=== PATIENT | male | born 1955 | race Caucasian/White ===

== ENCOUNTER 2019-08-24 00:17 | Inpatient (IN) | payer MEDICAID ==
[~2019-08-24] VITALS: Ht 182.8 cm; Wt 85.7 kg
[2019-08-25] MEDS ORDERED: ABILIFY20 MG PO (00:21)
[2019-08-25] MEDS ORDERED: ASPIR LOW81 MG PO (00:21)
[2019-08-25] MEDS ORDERED: BENZTROPINE MESY1 MG PO (00:22)
[2019-08-25] MEDS ORDERED: CARBAMAZEPINE200 M2 PO (00:22)
[2019-08-25] MEDS ORDERED: VITAMIN D32000 UNI1 PO (00:23)
[2019-08-25] MEDS ORDERED: Depakote ER500 MG PO (00:24)
[2019-08-25] MEDS ORDERED: HYDROCHLOROTH12.5 M3 PO (00:24)
[2019-08-25] MEDS ORDERED: IBUPROFEN400 MG PO (00:25)
[2019-08-25] MEDS ORDERED: QUETIAPINE FUM400 M1 PO (00:26)
[2019-08-25] MEDS ORDERED: TAMSULOSIN HCL0.4 MG PO (00:27)
--- NOTE | 2019-08-25 02:00 | NUR ---
RUFUS OROURKE a 63 year old M admitted via stretcher from the ADMITTING as a emergency 72 hr. hold admission. Arrived on unit at 0200AM. ALLERGIES: LIBRIUM, LITHIUM, KLONOPIN. Vital signs are: [id number] 141/66. The client IS PINK SLIPPED AND UNABLE TO SIGN the following forms with stated understanding: Authorization For The Release of Medical Information, Clothing List, Consent to Voluntary Admission and Hospitalization, Consent and Release Forms/Receipt of Rights, Acknowledgement of Advance Directive Information, Behavioral Health Consent Form, and Informed Consent of Medications. Admitted under the services of Dr. ALLYSON MARCIALJUSTIN. A search was conducted and hazardous articles were removed. Client was oriented to the unit. FLIGHT OF IDEAS. NARCESSISTIC, GRANDIOUS. STATES HE WANTS TO BE A WOMEN NOT A MAN BECAUSE HIS MOM DRESSED HIM A GIRL. HE IS PREOCCUPIED WITH RELIOUS THOUGHTS. SPEACH PRESSURED AND RAPID. HYPERVERAL AND VERY DIFFICULT TO KEEP ON TRACT. ALL QUESTIONS REVERT BACK TO HIS PAST INCLUDING BEING IN THE [place] WAR AT THE AGE OF 13 AND THE [place] WAR. WISHED TO BE ADDRESSED NATHALIE LULU. PREOCCUPLIED WITH THE BLACK RACE AND SAYS HE IS TO A BLACK WOMEN AND HAS A BLACK DAUGHTER. READ PAPER ON MINI MENTAL THAN SAID HE CAN'T READ OR RIGHT. CLIENT IS CONTINENT AND INCONTINENT. TAMMI SCHMITT
--- NOTE | 2019-08-25 02:05 | NUR ---
DR NORIEGA NOTIFIED ON CELL [phone] ABOUT PATIENT ADMISSION TO UNIT. PATIENT PLACED UNDER DR ROSALES FOR MEDICAL MANAGEMENT
[2019-08-25 02:10] VITALS: BP 141/66
--- NOTE | 2019-08-25 02:15 | NUR ---
DR NORIEGA ON UNIT TO SEE PATIENT
--- NOTE | 2019-08-25 02:40 | NUR ---
STATES THE NURSING FACILITY WON'T LET HIM DRINK. HE LIKES COORS BEER BUT DOESN'T DRINK IT.
--- NOTE | 2019-08-25 04:30 | NUR ---
24 HR chart check completed.
--- NOTE | 2019-08-25 06:19 | NUR ---
PATIENT DID NOT SLEEP THROUGHOUT SHIFT. Q 15 MINUTE CHECKS MAINTAINED. 24 HR chart check completed.
[2019-08-25 06:57] LABS: BASO % 0.3 % (0.0-1.0); EOS # 0.1 10*3/uL (0.0-0.4); HEMATOCRIT 40.4 % (42.0-52.0); HEMOGLOBIN 13.2 g/dl (14.0-18.0); LYMPH # 1.5 10*3/uL (1.3-4.4); LYMPH % 15.5 % (27.0-41.0); MEAN CELL VOLUME 96.4 fl (80.0-94.0); MEAN CORPUSCULAR HGB 31.5 pg (27.0-31.0); MEAN CORPUSCULAR HGB CONC 32.7 g/dl (33.0-37.0); MEAN PLATELET VOLUME 9.5 fl (9.6-12.3); MONO # 0.7 10*3/uL (0.1-1.0); MONO % 7.4 % (3.0-9.0); NEUT # 7.1 10*3/uL (2.3-7.9); NEUT % 75.6 % (47.0-73.0); PLATELET COUNT AUTOMATED 255 10*3/uL (130-400); RED BLOOD COUNT 4.19 10*6/uL (4.50-5.90); RED CELL DISTRI WIDTH 13.3 % (0-14.5); WHITE BLOOD COUNT 9.4 10*3/uL (4.8-10.8)
[2019-08-25 07:26] VITALS: BP 140/67
[2019-08-25 07:26] LABS: ALBUMIN 3.7 gm/dl (3.1-4.5); ALKALINE PHOSPHATASE 70 U/L (45-117); BUN 10 mg/dl (7-24); CHLORIDE 104 mmol/L (98-107); CHOLESTEROL 174 mg/dL (<200); CREATININE 0.71 mg/dL (0.70-1.30); HDL CHOLESTEROL 60 mg/dl (40-60); SGOT/AST 15 IU/L (3-35); SGPT/ALT 21 U/L (12-78); SODIUM 138 mmol/L (136-145); TOTAL PROTEIN 7.6 gm/dL (6.4-8.2)
[2019-08-25 07:42] LABS: CARBAMAZEPINE (TEGRETOL) TOTAL 5.5 ug/ml (4-12); LDL CHOLESTEROL 88 mg/dL (9-159); TRIGLYCERIDES 130 mg/dl (<150); VALPROIC ACID (DEPAKENE) 13.1 ug/ml (50-100); VLDL CHOLESTEROL 26 mg/dL (6-40)
[2019-08-25 08:00] VITALS: BP 140/67
[2019-08-25 08:09] LABS: VITAMIN D, 25-HYDROXY 50.8 ng/mL (30-100)
--- NOTE | 2019-08-25 12:09 | NUR ---
AM GROUP/LEISURE PT IN ATTENDNACE AND PARTICIPATED. 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 PT WILL CONTINUE TO ATTEND AND PARTICIPATE IN FUTURE GROUP SESSIONS. THIS STAFF WILL COMPLETE ACTIVITY ASSESSMENT TODAY.
--- NOTE | 2019-08-25 13:10 | NUR ---
Patient was hyperverbal, grandiose, and voicing flight of ideas during assessment process. Pt stated that this is the second coming and he knows this because he was sent here by God. Pt stated that he and went to hell but pleaded for a second chance. God sent him back to earth as a transgender named Princess Olsen. Pt stated that he was buying this hospital because the diapers here are of excellent quality. Pt also stated that he was going to put [phone] trillion dollars into this [employer] bank account. Pt also stated that his mother had 5 sons and then stopped because of the pain of childbirth but she was given to transgender girls that grew up to have purple hair. Pt smiled throughout entire encounter.
--- NOTE | 2019-08-25 15:45 | NUR ---
P: CONFUSION, SHORT/CORRECTION MEMORY DEFICITS I: PROVIDED 1:1 FOR THERAPEUTIC COMMUNICATION. ENCOURAGED MEDICATION COMPLIANCE. MONITORED BEHAVIORS WITH Q15 MINUTE SAFETY CHECKS. ENCOURAGED PT TO ATTEND/PARTICIPATE IN GROUP. PROVIDED MEDICATION EDUCATION. REORIENTED PT NEEDED. REDIRECTED NEEDED. R: MEDICATION COMPLIANT WITHOUT DIFFICULTY. PT ATTENDED/PARTICIPATED IN GROUP. PT VERBALIZED UNDERSTANDING OF MEDICATIONS. DENIES SI/HI THOUGHTS. DENIES SADNESS AND DEPRESSION. ANBULATORY WITH A STEADY GAIT. FOI NOTED THIS AM. GRANDIOSE. P: PROVIDE 1:1 FOR THERAPEUTIC COMMUNICATION. ENCOURAGE MEDICATION COMPLIANCE. MONITOR BEHAVIORS WITH Q15 MINUTE SAFETY CHECKS. ENCOURAGE PT TO ATTEND/PARTICIPATE IN GROUP. PROVIDE MEDICATION EDUCATION. CONTINUE TO REORIENT/REDIRECT PT NEEDED. SEE [facility] FLOWSHEET FOR SPECIFIC MONITORING. DURING INTERACTIONS WITH THIS NURSE AND A STUDENT NURSE, PT STATED HE IN 1979 AND GOD BROUGHT HIM BACK AN YURIY. PT STATED HE IS TRANSGENDER. PT STATED HE WANTED TO HURT THE IRANS BECAUSE THEY BLEW HIS PARENTS OUT OF THE [place]. PT STATED HE DOES NOT SLEEP BECAUSE TRAINED ARMED FORCES WILL KILL HIM. WHEN PROVIDING MEDICATION EDUCATION PT STATED [employer] DOES NOT WORK WITH HIM. PT CONTINUED ON STATING "THEY USE TO GIVE ME 20 OF THEM".
--- NOTE | 2019-08-25 15:58 | NUR ---
PM GROUP/JAMIE!/DEMETRIUS PT ATTENDED AND PARTICIPATED IN ALL GROUP ACTIVITY. PT PLEASANT AND ON TASK WITH NO CONFUSION OR ANGER, BUT CONTINUES TO BE DELUSIONAL STATING "I'M GOING TO BE TAKING OWNERSHIP OF THIS HOSPITAL ON TUESDAY, THE FUND DEVELOPMENT MANAGER IS COMING TO MEET WITH ME". PT WILL CONTINUE TO ATTEND AND PARTICIPATE IN FUTURE GROUP SESSIONS TO BEST OF PT ABILITY.
[2019-08-25 20:00] VITALS: BP 139/74
--- NOTE | 2019-08-26 00:45 | NUR ---
URINE SPECIMEN COLLECTED. URINE OBTAINED VIA CLEAN CATCH. URINE CLOUDY YELLOW. PATIENT INCONTINENT OF BLADDER PRIOR TO COLLECTING SPECIMEN. PATIENT WITH NO COMPLAINTS OF DYSURIA. PO FLUIDS ENCOURAGED
--- NOTE | 2019-08-26 00:51 | NUR ---
P-EUPHORIC, RAPID SPEECH, HYPERVERBAL, GRANDIOSE, IDEAS OF REFERENCE I-REDIRECTION WITH 1:1 THERAPEUTIC INTERVENTIONS AND PRESENT REALITY. EDUCATE AND ENCOURAGE GROUP THERAPY WHILE AWAKE R-PATIENT ALERT WITH SHORT TERM AND HALFWAY MEMORY DEFICITS. PATIENT MEDICATION COMPLIANT AT HS. PATIENT PROVIDED NOURISHMENT AND FLUIDS AT HS. PATIENT WITH NO SUICIDAL OR HOMICIDAL IDEATIONS. PATIENT VERBALIZING "I OWN THIS HOSPITAL AND I AM GOING TO BUY ALL OF YOU NEW COMPUTERS AND A NEW COMPUTER SYSTEM. I AM PRINCESS LAWSON. I WROTE MY NAME ON MY BRACELET. IN CASE YOU DIDN'T KNOW, I AM TRANSGENDER P-CONTINUE TO ENCOURAGE MEDICATION COMPLIANCE, CONTINUE TO PRESENT REALITY, ENCOURAGE GROUP THERAPY WHILE AWAKE
[2019-08-26 01:25] LABS: BILIRUBIN NEGATIVE (NEGATIVE); CLARITY CLEAR (CLEAR); COLOR YELLOW (YELLOW); GLUCOSE NEGATIVE (NEGATIVE); KETONE NEGATIVE (NEGATIVE)
[2019-08-26 01:26] LABS: BLOOD NEGATIVE (NEGATIVE); LEUKO ESTERASE NEGATIVE (NEGATIVE); NITRITE NEGATIVE (NEGATIVE); PH 6.5 (5.0-9.0); UROBILINOGEN 0.2 E.U./dl (0.2-1.0); WBC 0-2 wbc/hpf (0-5)
--- NOTE | 2019-08-26 06:12 | NUR ---
PATIENT SLEPT 4 HOURS OF INTERRUPTED SLEEP THROUGHOUT SHIFT. Q 15 MINUTE CHECKS MAINTAINED. 24 HR chart check completed.
[2019-08-26 08:00] VITALS: BP 140/77
--- NOTE | 2019-08-26 12:04 | NUR ---
CALL PLACED TO GUARDIAN CHAPARRITA COULTER, MESSAGE LEFT FOR GUARDIAN TO RETURN CALL TO SIGN PT IN.
--- NOTE | 2019-08-26 17:35 | NUR ---
P: CONFUSION, SHORT/RETIREMENT MEMORY DEFICITS I: PROVIDED 1:1 FOR THERAPEUTIC COMMUNICATION. ENCOURAGED MEDICATION COMPLIANCE. MONITORED BEHAVIORS WITH Q15 MINUTE SAFETY CHECKS. ENCOURAGED PT TO ATTEND/PARTICIPATE IN GROUP. PROVIDED MEDICATION EDUCATION. REORIENTED PT NEEDED. REDIRECTED NEEDED. R: MEDICATION COMPLIANT WITHOUT DIFFICULTY. PT ATTENDED/PARTICIPATED IN GROUP. PT VERBALIZED UNDERSTANDING OF MEDICATIONS. DENIES SI/HI THOUGHTS. DENIES SADNESS AND DEPRESSION. ANBULATORY WITH A STEADY GAIT. FOI NOTED THIS AM. GRANDIOSE. P: PROVIDE 1:1 FOR THERAPEUTIC COMMUNICATION. ENCOURAGE MEDICATION COMPLIANCE. MONITOR BEHAVIORS WITH Q15 MINUTE SAFETY CHECKS. ENCOURAGE PT TO ATTEND/PARTICIPATE IN GROUP. PROVIDE MEDICATION EDUCATION. CONTINUE TO REORIENT/REDIRECT PT NEEDED. SEE [facility] FLOWSHEET FOR SPECIFIC MONITORING. PT CONTINUES TO HAVE SAME GRANDIOSE DELUSIONS THE PREVIOUS DAY.
[2019-08-26 20:00] VITALS: BP 159/70
[2019-08-27 07:41] VITALS: BP 135/63
--- NOTE | 2019-08-27 08:30 | NUR ---
Treatment Plan meeting was held with Dr. Ross, SRAVAN Carey RN, COOK CAMP-S and Social Worker Aide. Plan for discharge next week. Pt. came to [facility] from [facility]. Will reach out to facility to discuss discharge planning.
--- NOTE | 2019-08-27 11:09 | NUR ---
Spoke with Yoon at [facility]. Pt. is LTC in the [facility]. Medicaid Bed Hold. NO precert to return.
--- NOTE | 2019-08-27 11:43 | NUR ---
AM GROUP PT ATTENDED MORNING GROUP THERAPY AND PARTICIPATED BY DOING A WORDSEARCH. PT IS SET TO BE DISCHARGED FROM THE UNIT TODAY
--- NOTE | 2019-08-27 14:55 | NUR ---
VERBAL CONSENTS FOR ADMISSION OBTAINED FROM PT'S LEGAL GUARDIAN CHAPARRITA COULTER. LEGAL GUARDIAN STATES THAT AT BASELINE PT IS VERY DELUSIONAL WITH PRESSURED SPEECH BUT IS ALWAYS POLITE AND PLEASANT. CHAPARRITA STATES IN THE 5 YEARS HE HAS KNOWN RUFUS HE HAS NEVER BEFORE BEEN AGGRESSIVE. CHAPARRITA VOICES THAT OF LATE PT HAS BEEN INCREASINGLY MANIC AND DELUSIONAL SO HE DOES FEEL THOUGHT PT WOULD BENEFIT FROM MEDICATION ADJUSTMENTS. 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
--- NOTE | 2019-08-27 15:00 | NUR ---
PM GROUP/WATERCOLORS PT ATTENDED AFTERNOON GROUP THERAPY AND PARTICIPATED IN ALL ACTIVITIES. PT WAS GRANDIOUS BUT EXPRESSED NO ANGER OR CONFUSION WHILE IN GROUP.
--- NOTE | 2019-08-27 19:34 | NUR ---
P- EUPHORIC, GRANDIOSE DELUSIONAL, PRESSURED SPEECH, FLIGHT OF IDEAS I- ORIENTATION, MOOD AND BEHAVIOR ASSESSED. ASSESSED PT FOR SI/HI, INTENT OR PLAN. ASSESSED PT FOR S/S HALLUCINATIONS, PARANOIA AND/OR DELUSIONS. MEDICATIONS ADMINISTERED PER PHYSICIAN'S ORDERS. ASSISTANCE WITH ADL CARE PROVIDED NEEDED. ENCOURAGED PT TO ATTEND AND PARTICIPATE IN FARIAS MILIEU GROUPS AND ACTIVITIES. R- PT IS ALERT AND ORIENTED X4. MEMORY APPEARS TO BE INTACT. RESPS EASY AND EVEN ON ROOM AIR. MOOD EUPHORIC, AFFECT IS ANIMATED, SPEECH IS PRESSURED, SOFT, TANGENTIAL WITH FLIGHT OF IDEAS NOTED. PT DENIES SI/HI, INTENT OR PLAN. PT STATES HE IS HAVING HALLUCIATIONS OF "GOD TELLING ME I'VE COME BACK TO LIFE FOR A SECOND CHANCE. GOD TALKS TO ME ALL THE TIME". PT CONTINUES TO BE GRANDIOSE DELUSIONAL, STATES HE IS MEETING WITH SAAS ARCHITECT OF THE HOSPITAL TOMORROW TO BUY THIS HOSPITAL. PT IS POLITE AND PLEASANT. STATES THIS IS THE BEST PLACE HE HAS EVER BEEN AND HE FEELS BETTER THAN HE HAS EVER FELT. MED COMPLIANT WITHOUT DIFFICULTY. NO DISTRESS NOTED. P- PLAN TO CONTINUE CURRENT TREATMENT, CONTINUE TO MONITOR MOOD AND BEHAVIORS, PROVIDE APPROPRIATE REORIENTATION, REDIRECTION AND 1:1 NEEDED. CONTINUE TO ENCOURAGE MEDICATION COMPLIANCE WELL GROUP ATTENDANCE AND PARTICIPATION.
[2019-08-27 19:48] VITALS: BP 140/66
--- NOTE | 2019-08-27 20:35 | NUR ---
EVENING/CRAFT/MOVIE PT ATTENDED AND PARTICIPATED IN ALL GROUP ACTIVITY. PT PLEASANT AND ON TASK WITH NO ANGER OR CONFUSION EXPRESSED AT THIS TIME. PT QUIET AND KEPT TO SELF.
--- NOTE | 2019-08-27 22:16 | NUR ---
P--GRANDIOUS, PREOCCUPIED I--DISCUSSED MEDICATIONS. REVIEWED IMPORTANCE OF HIM USING THE TOILET VS WETTING HIMSELF IN BED. EXPLAINED WHY HE COULD HAVE A PULL UP NOT A DIAPER TIME TO ALLOW HIM TO VENT. R--BUT IT RELAXES ME TO PEE MYSELF AT NIGHT. I WANT TO WEAR A DIAPER BUT OK. I WILL BRUSH MY OWN TEETH I DON'T NEED HELP. (BROKE OFF A COUPLE TIMES FOR OTHER THOUGHTS) I-MONITOR FOR CHANGES IN BEHAVIOR/MOOD. MONITOR Q 15 MINUTES AND PRN FOR SAFETY
--- NOTE | 2019-08-28 05:51 | NUR ---
24 HR chart check completed.
--- NOTE | 2019-08-28 05:53 | NUR ---
CURRENTLY IN DININGROOM. CLIENT IN BED WITH PANTS PULLED DOWN TO ANKLES AND HE WAS INCONTINENT OF URINE. IRRITABLE WHEN INSTRUCTED TO GET UP AND CHANGE CLOTHING. BED STRIPPED AND CLEANED
[2019-08-28 07:56] VITALS: BP 120/65
--- NOTE | 2019-08-28 10:00 | NUR ---
Treatment plan meeting was held with SRAVAN Carey, RN, AT, CLAY MINE CUTTING MACHINE OPERATOR-S and Technical Support Technician. Plan for discharge Next Week. Pt. will return to the [place] at discharge.
--- NOTE | 2019-08-28 12:25 | NUR ---
DR NERI ON UNIT TO ASSESS PT, UPDATE PROVIDED.
--- NOTE | 2019-08-28 15:50 | NUR ---
PM GROUP PT ATTENDED AFTERNOON GROUP THERAPY AND PARTICIPATED IN ALL ACTIVITIES. PT WAS HYPERVERBAL AND GRANDIOUS AND HAD TO BE REMINDED TO STAY ON TASK. PT EXHIBITED NO AGITATION OR AGGRESSION WHILE IN GROUP.
--- NOTE | 2019-08-28 16:30 | NUR ---
P: PT TALKING INAPPROPRIATELY TO STAFF, MAKING COMMENTS ABOUT HAVING CREAMS FOR YOUR PRIVATE PARTS THAT CAN DO CERTAIN THINGS. PT GRANDIOSE AND DELUSIONAL THINKING WE ARE ON [place] AND AN ASTROID IS GOING TO HIT THE EARTH AND WE WILL NOT HAVE OXYGEN FOR 1 YEAR AND WE WILL ALL HAVE TO GO TO [place]. PT IS HYPERVERBAL AT TIMES WITH FLIGHT OF IDEAS. I: REDIRECT CONVERSATION AND ADVISE PT THAT IT IS INAPPROPRIATE TO SPEAK IN THAT MANOR. PRESENT REALITY AND RE-ORIENT NEEDED, PROVIDE EMOTIONAL SUPPORT AND 1:1 FOR PT TO VOICE FEELING R: PT ALERT TO PERSON, PLACE AND TIME. PT MED COMPLIANT WITHOUT DIFFICUTLY, UNABLE TO PROVIDE EDUCATION D/T INABILITY TO CONCENTRATE. PT AMBULATORY THROUGHOUT UNIT, GAIT STEADY. PT CONTINENT OF BOWEL AND BLADDER, EPISODES OF INCONTINENCE NOTED, CARE PROVIDED NEEDED. PT IS UNABLE TO BE REDIRECTED, AND IS UNRECEPTIVE TO PRESENTATION OF REALITY. P: MONITOR PT BEHAVIORS ON Q15 MIN SAFETY CHECKS, ENCOURAGE MED COMPLIANCE AND PROVIDE MED EDUCATION, PROVIDE EMOTIONAL SUPPORT AND 1:l FOR PT TO VOICE FEELINGS, PRESENT REALITY AND RE-ORIENT NEEDED, PROVIDE REDIRECTION, CONTINUE TO ENCOURAGE PT TO SPEAK APPROPRIATELY WITH STAFF AND PEERS.
[2019-08-28 19:45] VITALS: BP 130/80
--- NOTE | 2019-08-28 20:33 | NUR ---
EVENING/LEISURE SKILLS PT ATTENDS AND PARTICIPATES IN ALL ACTIVITY. PT PLEASANT BUT IS HYPERVERBAL WITH GRANDIOUS DELUSIONS ENTIRE GROUP. 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 PT WILL CONTINUW TO ATTEND AN DPARTICIPATE IN FUTURE GROUP SESSIONS.
--- NOTE | 2019-08-28 22:38 | NUR ---
P--INAPPROPRIATE BEHAVIOR, I--REDIRECTED THAT HE CANNOT LAY WITH HIS PANTS AND UNDERWEAR DOWN TO HIS ANKLES AND NO SHEET. DIRECTED HIM TO BATHROOM. REVIEWED PERSONAL SPACE AND MEDICATIONS R--I LIKE THEM DOWN SO I CAN PEE THE BED AND NOT GET THEM WET. FINE I WILL GO TO THE BATHROM P--MONITOR FOR CHANGES IN MOOD/BEHAVIOR MONITOR Q 15 MINUTES AND PRN FOR SAFETY
--- NOTE | 2019-08-28 23:12 | NUR ---
STAFF HAS BEEN TOILETING CLIENT EVERY HOUR BUT HE STILL SATURATED BED WITH URINE. REDIRECTED THAT THIS IS NOT ACCEPTABLE BEHAVIOR FOR AN ADULT WITH NO RESPONCE FROM HIM
--- NOTE | 2019-08-29 04:42 | NUR ---
IN SHOWER. UP Q 1 HOUR AT HIS REQUEST AND NO INCONTINENCE
--- NOTE | 2019-08-29 05:58 | NUR ---
24 HR chart check completed.
[2019-08-29 08:00] VITALS: BP 147/80
--- NOTE | 2019-08-29 09:06 | NUR ---
DR MCCLURE ON UNIT TO ASSESS PT, UPDATE PROVIDED.
--- NOTE | 2019-08-29 09:58 | NUR ---
TREATMENT PLAN MEETING WAS HELD WITH DR. VALADEZ, RN, AT, [facility] AND BOAT WASHER. PLAN FOR DISCHARGE NEXT WEEK. PT. WILL RETURN TO [facility].
[2019-08-29 10:36] LABS: BASO # 0.1 10*3/uL (0.0-0.1); BASO % 0.5 % (0.0-1.0); EOS # 0.4 10*3/uL (0.0-0.4); EOS % 3.9 % (1.0-4.0); HEMATOCRIT 37.4 % (42.0-52.0); HEMOGLOBIN 12.2 g/dl (14.0-18.0); LYMPH # 1.7 10*3/uL (1.3-4.4); LYMPH % 18.2 % (27.0-41.0); MEAN CELL VOLUME 97.9 fl (80.0-94.0); MEAN CORPUSCULAR HGB 31.9 pg (27.0-31.0); MEAN CORPUSCULAR HGB CONC 32.6 g/dl (33.0-37.0); MEAN PLATELET VOLUME 9.7 fl (9.6-12.3); MONO # 1.1 10*3/uL (0.1-1.0); MONO % 11.5 % (3.0-9.0); NEUT # 6.1 10*3/uL (2.3-7.9); NEUT % 64.9 % (47.0-73.0); PLATELET COUNT AUTOMATED 237 10*3/uL (130-400); RED BLOOD COUNT 3.82 10*6/uL (4.50-5.90); RED CELL DISTRI WIDTH 13.4 % (0-14.5); WHITE BLOOD COUNT 9.4 10*3/uL (4.8-10.8)
--- NOTE | 2019-08-29 11:47 | NUR ---
AM GROUP PT ATTENDED MORNING GROUP THERAPY AND PARTICIPATED IN ALL ACITIVITES. PT WAS HYPERVERBAL AND GRANDIOUS. PT DID COMPLETE TASKS WHEN REMINDED TO FOCUS. PT EXHIBITED NO AGITATION WHILE IN GROUP
--- NOTE | 2019-08-29 15:45 | NUR ---
PM GROUP PT ATTENDED AFTERNOON GROUP THERAPY AND PARTICIPATED IN ALL ACTIVITIES. PT WAS HYPERVERBAL AND GRANDIOUS. PT IS EXHIBITING HORDING BEHAVIOR AND HAD SEVERAL MARKERS, MAGAZINE PAGES, PAPER AND A RACQUET MAKER. PT WAS TAKEN TO THE RESTROOM BY MHW AND CAME BACK AGITATED THAT SHE "STRIP SEARCHED" HIM AND TOOK A MARKER FROM HIM. PT WAS STATING, "HOW CAN EDIDRE DO THAT? THAT'S NOT RIGHT! I'M GOING TO FIRE HER, I WILL GET HER BACK, IF SHE'S GOING TO BE MEAN TO ME!" REDIRECTION WAS ATTEMPTED BUT PT KEPT CIRCLING AROUND TO HER AND SOMEONE NAMED ANNE WHO HE CLAIMS STOLE ALL OF HIS CLOTHES AND HIS BLANKET.
--- NOTE | 2019-08-29 17:22 | NUR ---
P:STAFF ASSISTING PT TO CHANGE CLOTHES D/T PANTS BEING TOO LARGE AND COMING DOWN , PT WAS FOUND TO BE WEARING A PULL UP AND HAD A SOILED DEPEND FOLDED UP INSIDE OF HIS PANTS. PT FOUND TO BE HOARDING ITEMS IN HIS POCKETS SUCH MARKERS, PIPE WATCH CASE POLISHER, MULTIPLE PAGES OUT OF A MAGAZINE. PT DELUSIONAL STATING "IM GOING TO BUY THIS HOSPITAL FROM [place] [place] AND THEN IM GOING TO FIRE HIM" I: PT ROOM SEARCHED PER POLICY FOR CONTRABAND ITEMS. PROVIDED EMOTIONAL SUPPORT AND 1:1 FOR PT TO VOICE FEELINGS, EDUCATED PT ON REASONS WHY HE IS UNABLE TO KEEP CONTRABAND ITEMS ON HIS PERSON, RE-ORIENT AND PRESENT REALITY R: PT ALERT TO PERSON, PLACE AND TIME. PT ARGUEMENTATIVE WITH STAFF, UNABLE TO REDIRECT, PT UNRECEPTIVE TO RE-ORIENTATION AND PRESENTATION OF REALITY, PT STATES "LET'S BET YOUR JOB THAT IM RIGHT." PT AMBULATORY THROUGHOUT UNIT, GAIT STEADY. PT CONTINENT OF BOWEL AND BLADDER, EPISODES OF INCONTINENCE NOTED, CARE PROVIDED NEEDED. P: MONITOR PT BEHAVIORS ON Q15 MIN SAFETY CHECKS, ENCOURAGE MED COMPLIANCE AND PROVIDE MED EDUCATION, PRESENT REALITY AND RE-ORIENT, PROVIDE EMOTIONAL SUPPORT AND 1:1 FOR PT TO VOICE FEELINGS.
[2019-08-29 20:00] VITALS: BP 145/72
--- NOTE | 2019-08-30 00:58 | NUR ---
P-GRANDIOSE DELUSIONS. FOI, EUPHORIC I-PROVIDED 1:1 WITH THERAPEUTIC INTERVENTIONS. PT EDUCATED ON IMPORTANCE TO USE THE RESTROOM VS WETTING THE BED. PT ALSO INFORMED HE COULD ONLY USE A PULL UP AND NO "PURPLE DIAPERS". REDIRECTED NEEDED. ENCOURAGED MEDICATION COMPLIANCE AND EDUCATED. MONITOR SLEEP. R- PT CARRYING AROUND MAGAZINE THAT STATES PEOPLE IN ARE 2X MORE LIKELY TO BE INCONTINENT AND POINTING IT OUT TO STAFF STATING "SEE I'VE BEEN IN THE AND THATS WHY I WET THE BED". PT ALSO GRANDIOSE IN REGARDS TO BEING SUPERVISOR INSPECTION OF THIS HOSPITAL AND IS GOING TO [place] SO EVERYONE CAN GO ON VACATIONS TO TRAVEL THE WORLD. PT UNRECEPTIVE TO REALITY PRESENTATION BUT IS OTHERWISE EASILY REDIRECTABLE. PT CALM, PLEASANT, ALERT AND ORIENTED X3. NO AGITATION OR SEXUALLY INAPPROPRIATE BEHAVIOR NOTED. PT MEDICATION COMPLIANT WITHOUT DIFFICULTY AFTER REVIEW. PT DENIES SI/HI, HALLUCINATIONS OR PAIN. PT AMBULATORY WITH STEADY GAIT. INDEPENDENT WITH ADL'S WITH STAND BY ASSIST, CONTINENT/INCONTINENT OF BOWEL AND BLADDER. PT LAYING DOWN WITH EYES CLOSED, RESPIRATIONS EASY AND REGULAR, NO SIGNS OR SYMPTOMS OF DISTRESS NOTED. P-CONTINUE TO MONITOR MOOD AND BEHAVIORS. PRESENT REALITY AND REDIRECT NEEDED. MAINTAIN Q 15 MIN CHECKS.
--- NOTE | 2019-08-30 02:12 | NUR ---
PT AWOKE AND WITNESSED BY STAFF TO SIT UP IN BED AND URINATE. PT REDIRECTED TO USE THE RESTROOM AND ASSISTED STAFF IN MAKING HIS BED. PT REITERATED IN THE IMPORTANCE TO USE THE RESTROOM BY THIS RN, PT STATED "I TOLD YOU I WAS GOING TO DO THAT BECAUSE THATS WHAT THIS MAGAZINE SAID". PT CONTINUES TO BE UNRECEPTIVE TO REALITY PRESENTATION AND STATES "WHATEVER YOU SAY". WILL CONTINUE TO MONITOR FOR ESCALATING BEHAVIORS.
--- NOTE | 2019-08-30 04:19 | NUR ---
24 HOUR CHART CHECK COMPLETED.
--- NOTE | 2019-08-30 05:34 | NUR ---
PATIENT OBSERVED ON Q 15 MIN CHECKS TO HAVE SLEPT APPROX 2 HOURS INTERRUPTED WITH MULTIPLE AWAKENINGS NOTED DUE TO INCONTINENCE OR TO GO INTO HIS RESTROOM TO READ. NO SIGNS OR SYMPTOMS OF DISTRESS NOTED.
--- NOTE | 2019-08-30 06:44 | NUR ---
PATIENT SEXUALLY INAPPROPRIATE THIS AM, STAFF OBSERVED PT TELLING ANOTHER PEER TO LIFT UP HER SHIRT. PT IMMEDIATELY REDIRECTED AND REMOVED FROM LOCATION OF PEER AND EDUCATED ON APPROPRIATE BEHAVIOR. WILL CONTINUE TO MONITOR.
[2019-08-30 08:00] VITALS: BP 151/78
--- NOTE | 2019-08-30 10:14 | NUR ---
TREATMENT PLAN MEETING WAS HELD WITH DR. VALADEZ, RN, AT, FOREST NURSERY SUPERVISOR-S AND TANK TRUCK MILK RECEIVER. PLAN FOR DISCHARGE NEXT WEEK WITH RETURN TO THE [facility].
--- NOTE | 2019-08-30 11:52 | NUR ---
AM GROUP PT ATTENDED MORNING GROUP THERAPY AND PARTICIPATED IN ALL ACTIVITIES. PT IS HYPERVERBAL AND GRANDIOUS. PT IS ARGUEMENTATIVE AND UPSET AT THE "DUMB RULES" HERE. PT WAS CHECKED FOR HORDING MARKERS OR COLORED PENCILS BEFORE THIS SPINNING ROOM WORKER LEFT THE DAYROOM.
[2019-08-30 20:00] VITALS: BP 138/71
--- NOTE | 2019-08-30 23:57 | NUR ---
P-GRANDIOSE, FOI, LABILE I-PROVIDED 1:1 WITH THERAPEUTIC INTERVENTIONS. PT EDUCATED ON IMPORTANCE TO USE THE RESTROOM VS WETTING THE BED. PROVIDED APPROPRIATE LIMIT SETTING AND EDUCATED ON APPROPRIATE BEHAVIOR . REDIRECTED NEEDED. ENCOURAGED MEDICATION COMPLIANCE AND EDUCATED. MONITOR SLEEP. R- "SATNAM LOPEZ THE CUSTOMER ORDER CLERK, IM SUING THIS HOSPITAL SO EVERYONE CAN GO ON VACATION AND TRAVEL THE WORLD". PT PREOCCUPIED WITH MAGAZINE FROM PREVIOUS DAY STATING THAT IS THE REASON HE IS INCONTINENT. PT PUTTING BOOKS, MAGAZINES, AND NEWSPAPERS IN PANTS TO TAKE TO ROOM. PT AGITATED WITH REDIRECTION, REMAINS UNRECEPTIVE TO REALITY ORIENTATION. NO COMBATIVE BEHAVIORS OBSERVED. MEDICATION COMPLIANT WITHOUT DIFFICULTY. DENIES SI/HI, HALLUCINATIONS, OR PAIN. INDEPENDENT IN ADL'S WITH STAND BY ASSIST, INCONTINENT/CONTINENT OF BOWEL AND BLADDER. PT RESTING QUIETLY WITH EYES CLOSED, RESPIRATIONS EASY AND REGULAR, NO SIGNS OR SYMPTOMS OF DISTRESS NOTED. P-CONTINUE TO MONITOR MOOD AND BEHAVIORS. PRESENT REALITY AND REDIRECT NEEDED. MAINTAIN Q 15 MIN CHECKS.
--- NOTE | 2019-08-31 05:53 | NUR ---
PATIENT OBSERVED ON Q 15 MIN CHECKS TO HAVE SLEPT APPROX 5 HOURS INTERRUPTED. PT REMAINS INCONTINENT WHILE IN BED DESPITE EDUCATION AND ENCOURAGEMENT TO USE THE RESTROOM, STATES TO STAFF "VETERANS ARE INCONTINENT", UNABLE TO REDIRECT. NO SIGNS OR SYMPTOMS OF DISTRESS NOTED.
[2019-08-31 07:45] VITALS: BP 145/73
--- NOTE | 2019-08-31 08:00 | NUR ---
TREATMENT PLAN MEETING WAS HELD WITH SRAVAN PALACIO, RN, AT, [facility] AND COLON AND RECTAL SURGEON. PLAN FOR DISCHARGE NEXT WEEK, POSSIBLE TUESDAY DISCHARGE WITH RETURN TO THE [facility].
--- NOTE | 2019-08-31 11:08 | NUR ---
LEFT VOICE MESSAGE FOR HANG AGUILAR AT AT [facility] TO NOTIFY OF PLANS TO DISCHARGE NEXT WEEK. CLINICAL UPDATES FAXED TO FACILITY [phone]
--- NOTE | 2019-08-31 12:35 | NUR ---
AM GROUP PT ATTENDED MORNING GROUP THERAPY AND PARTICIPATED IN ALL ACTIVITIES. PT IS HYPERVERBAL AND HAS TO BE CONSTANTLY REMINDED OF THE TASK AT HAND. PT IS ARGUEMENTATIVE AND AGITATED AT THE "DUMB RULES" OF THE UNIT. PT HAS GRANDIOUS DELUSIONS.
--- NOTE | 2019-08-31 15:08 | NUR ---
SKIN ASSESSMENT COMPLETED NO NEW AREA,S MOLE NOTED TO LEFT UPPER SCAPULA
--- NOTE | 2019-08-31 15:14 | NUR ---
P-AGITATED MOOD -GETS MAD WHEN STAFF REDIRECTS - PT PUTTING MAGIZINES IN PANTS PT REDIRECTED PT TOOK MAGIZINES OUT OF PANTS AND THEN TOLD STAFF MEMBER YOUR FIRED I- 1;1, TALKED WITH PT ABOUT IMPORTANCE OF USING RESTROOM AND INCONTINENCE EPISODES, PT ENCOURAGED TO USE RESTROOM EVERY 2 HOURS, BEHAVIORS MONTITERD WITH Q 15 MIN SAFETY CHECKS R-PT VERBILIZES UNDERSTANDING, LETTING STAFF KNOW WHEN HE HAS TO USE THE RESTROOM P- PROVIDE 1;1 WHEN NEEDED, EDUCATE PT ON IMPORTANCE ON CONTINENCE,AND INFECTION PREVENTION, CONTINUE TO ENCOURAGE PT TO USE RESTROOM EVERY 2 HOURS AND MONITOR BEAHVIORS WITH Q15 MIN Safety checks see [facility] [[email or web address]] flowsheet for specific monitoring
--- NOTE | 2019-08-31 15:34 | NUR ---
PM GROUP PT ATTENDED AFTERNOON GROUP THERAPY AND PARTICIPATED IN ALL ACTIVITIES. PT CONTINUES TO BE HYPERVERBAL, ARGUEMENTATIVE, AND AGITATED WITH UNIT RULES.
--- NOTE | 2019-08-31 17:04 | NUR ---
AFTER PHONE CALL WITH GUARDIAN PT STATED TO NURSE "WHY IS HE AUTHORIZED TO PAY A SEX PLAYER TO RAPE HIM"
[2019-08-31 20:00] VITALS: BP 152/78
--- NOTE | 2019-09-01 05:13 | NUR ---
P-GRANDIOSE, IDEAS OF REFERENCE I-REDIRECTION WITH 1:1 THERAPEUTIC INTERVENTIONS AND PRESENT REALITY. EDUCATE AND ENCOURAGE GROUP THERAPY WHILE AWAKE R-PATIENT ALERT WITH SHORT TERM AND SENIOR CARE MEMORY DEFICITS. PATIENT MEDICATION COMPLIANT AT HS. PATIENT PROVIDED NOURISHMENT AND FLUIDS AT HS. PATIENT WITH NO SUICIDAL OR HOMICIDAL IDEATIONS. PATIENT VERBALIZING "I KNOW YOU SEE MY ARMABAND. I JUST DON'T KNOW WHY I'M NOT ALLOWED TO HAVE ANY FEMALE ROOM MATES. I'M PRINCESS LAWSON'S DAUGHER VICTORINA LOPEZ.I TAKE PAMELA THE SPORTS TEAM MARKETING INTERN OF THE HOSPITAL TOMORROW P-CONTINUE TO ENCOURAGE MEDICATION COMPLIANCE, CONTINUE TO PRESENT REALITY, ENCOURAGE GROUP THERAPY WHILE AWAKE
--- NOTE | 2019-09-01 06:19 | NUR ---
PATIENT SLEPT 8 HOURS UNINTERRUPTED SLEEP THROUGHOUT SHIFT. Q 15 MINUTE CHECKS MAINTAINED. 24 HR chart check completed. PATIENT SKIN ASSESSED AT HS WITH NO AREAS NOTED
[2019-09-01 08:19] VITALS: BP 145/79
--- NOTE | 2019-09-01 11:42 | NUR ---
AM GROUP/LEISURE SKILLS PT IN ATTENDNACE AND PARTICIPATED. PT GRANDIOUS DELUSIONS ENTIRE GROUP "I'M GOING TO BUY A HOUSE FOR EVERYONE AND A CAR TOO" PT ALSO TELLING THIS STAFF THAT SHE IS DOING THE ACTIVITY WRONG AND STATES "THE ONLY WAY TO DO IT IS MY WAY". PT LOOKING THROUGH [employer] CIRCLEING PICTURES AND PUT TOGETHER A BIRDHOUSE. PT WILL CONTINUE TO ATTEND/PARTICIPATE IN FUTURE GROUP SESSIONS.
--- NOTE | 2019-09-01 15:14 | NUR ---
P-GRANDIOSE / LABILE I- 1;1, MEDICATION COMPLIANCE , ENCOURAGE GROUP ATTENDENCE AND PARTICIPATION Q15MIN SAFETY CHECKS R- 1;1 EFFECTIVE MEDICATION WITHOUT DIFFICULITY , ATTENDS GROUP WITH PARTICIPIATION P- 1;1 MEDICATION COMPLIANCE , ENCOURAGE GROUP ATTEDENCE AND PARTICIPATION Q 15 MIN CHECKS SEE [facility] NOTES FOR BEHAVIORL MONITORING
--- NOTE | 2019-09-01 15:54 | NUR ---
PM GROUP/LEISURE SKILLS PT IN ATTENDNACE AND PARTICIPATING. PT CONTINUES WITH GRANDIOUS DELUSIONS. MHW ASKS PT TO CLEAN UP MAGAZINES AND SUPPLIES PT STATES "I OWN THE PLACE SO I DONT HAVE TO". PT WILL CONTINUE TO ATTEND/PARTICIPATE IN FUTURE GROUP SESSIONS.
[2019-09-01 20:00] VITALS: BP 153/66
--- NOTE | 2019-09-02 02:32 | NUR ---
P-GRANDIOSE I-REDIRECTION WITH 1:1 THERAPEUTIC INTERVENTIONS AND PRESENT REALITY. EDUCATE AND ENCOURAGE GROUP THERAPY WHILE AWAKE R-PATIENT MEDICATION COMPLIANT AT HS. PATIENT PROVIDED NOURISHMENT AND FLUIDS AT HS. PATIENT WITH NO SUICIDAL OR HOMICIDAL IDEATIONS. PATIENT WITH NO HALLUCINATIONS. PATIENT WITH GRANDIOSE DELUSIONS THROUGHOUT SHIFT BUT EASILY REDIRECTABLE. PATIENT INCONTINENT OF BLADDER X 3. PATIENT ROOM CHECKED AND INCONTINENT BRIEFS IN ROOM OR MAGAZINES PRESENT IN PATIENT ROOM. P-CONTINUE TO ENCOURAGE MEDICATION COMPLIANCE, CONTINUE TO PRESENT REALITY, ENCOURAGE GROUP THERAPY WHILE AWAKE
--- NOTE | 2019-09-02 06:14 | NUR ---
PATIENT SLEPT 7 HOURS INTERRUPTED THROUGHOUT SHIFT. Q 15 MINUTE CHECKS MAINTAINED. 24 HR chart check completed. NO CHANGE IN SKIN INTEGRITY ON ASSESSMENT THIS SHIFT
[2019-09-02 08:00] VITALS: BP 144/73
--- NOTE | 2019-09-02 12:04 | NUR ---
PM GROUP/EXERCISE/BRAIN GAMES PT IN ATTENDNACE AND PARTICIPATED IN ALL ACTIVITY. 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 PT UNABLE TO BHARAT DUE TO STAFF GIVING PT MINIMAL SUPPLIES AT THIS TIME. PT WILL CONTINUE TO ATTEND AN DPARTICIPATE TO BEST OF PT ABILITY.
--- NOTE | 2019-09-02 12:25 | NUR ---
P-GRANDIOSE /MANIC I- 1;1 MEDICATION COMPLIANCE Q 15 MIN SAFETY CHECKS GROUP ATTENDENCE AMD PARTICIPATION R-1;1 EFFECTIVE MEDICATION WITHOUT DIFFICULITY GROUP PARTICIPATION AND ATTENDENCE P- 1; MEDICATION COMPLIANCE Q 15 MIN CHECKS GROUP ATTEDENCE AND PARTICIPATION SEE [facility] NOTES FOR BEHAVIORL MONITORING
[2019-09-02 20:00] VITALS: BP 134/65
--- NOTE | 2019-09-03 05:03 | NUR ---
P-GRANDIOSE I-REDIRECTION WITH 1:1 THERAPEUTIC INTERVENTIONS AND PRESENT REALITY. EDUCATE AND ENCOURAGE GROUP THERAPY WHILE AWAKE R-PATIENT MEDICATION COMPLIANT AT HS. PATIENT PROVIDED NOURISHMENT AND FLUIDS AT HS. PATIENT WITH NO SUICIDAL OR HOMICIDAL IDEATIONS. PATIENT WITH NO HALLUCINATIONS. PATIENT WITH GRANDIOSE DELUSIONS THROUGHOUT SHIFT BUT EASILY REDIRECTABLE. PATIENT INCONTINENT OF BLADDER X 3. PATIENT ROOM AND DRAWERS CHECKED AND INCONTINENT BRIEFS REMOVED FROM ROOM AND MAGAZINES NOT IN PATIENT ROOM. P-CONTINUE TO ENCOURAGE MEDICATION COMPLIANCE, CONTINUE TO PRESENT REALITY, ENCOURAGE GROUP THERAPY WHILE AWAKE
--- NOTE | 2019-09-03 05:49 | NUR ---
PATIENT SLEPT 7 HOURS OF INTERRUPTED SLEEP THROUGHOUT SHIFT. Q 15 MINUTE CHECKS MAINTAINED. 24 HR chart check completed. NO CHANGES IN SKIN INTEGRITY THIS SHIFT
[2019-09-03 08:00] VITALS: BP 140/82
--- NOTE | 2019-09-03 09:40 | NUR ---
TREATMENT PLAN MEETING WAS HELD WITH SRAVAN PALACIO RN, CAR REPAIRER-S AND STAR ROUTE MAIL DRIVER. PLAN FOR DISCHARGE WHEN STABLE. PT. WILL RETURN TO THE [place] AT DISCHARGE.
--- NOTE | 2019-09-03 09:50 | NUR ---
DR. CHEATHAM ON UNIT TO ASSESS PATIENT.
--- NOTE | 2019-09-03 12:26 | NUR ---
P: DELUSIONAL THOUGHTS VOICED. RECALLING PLACE "[facility]" STATES HE IS "VICTORINA LOPEZ, PRINCESS LAWSON'S DAUGHTER" PATIENT STATED HE HAD PAIN IN HIS "KNEE FROM THE [place]", HE ALSO STATED" I HAVE TO GO TO [place]" PATIENT ADMITS TO VISUAL HALLUCINATIONS, "I SEE GOD AND ANGELS AT NIGHT" I: ONE ON ONE AND REDIRECTION PROVIDED. R: EFFECTIVE. PATEINT IS ALERT TO SIUTATION AND RESPONSE TO NAME BUT REFERS TO BE CALLED VICTORINA JOHN. PATEINT INTERACTIVE THIS MORNING WITH STAFF AND OTHER PATIENTS. WATCHING MOVIE IN DINING ROOM. DENIES HI/SI. NO FURTHER COMPLAINTS OF PAIN OR DISTRESS OBSERVED. LESS HYPERVERBAL. DELUSIONAL THOUGHTS VOICED, RESPONDING TO INTERNAL STIMULI. INDEPENDENT WITH ACTIVITIES OF DAILY LIVING, INCONTINENT OF BLADDER, CONTINENT OF BOWEL. SET UP FOR MEALS, INTAKES ARE GOOD WITH ADEQAUTE FLUIDS. AMBULATORY ON UNIT WITH STEADY GAIT. MEDICATION COMPLAINT AND Q 15 MINUTE SAFETY CHECKS MAINTAINED. NO AGGRESSION OBSERVED. P: CONTINUE TO MONITOR FOR AGGRESSION, PROVIDE ONE ON ONE AND REDIRECTION NEEDED.
--- NOTE | 2019-09-03 14:47 | NUR ---
CLINICAL UPDATES FAXED TO THE [facility] ATTN: HANG [phone].
--- NOTE | 2019-09-03 15:14 | NUR ---
Shift chart check completed.
[2019-09-03 19:38] VITALS: BP 142/65
--- NOTE | 2019-09-03 21:25 | NUR ---
24 HR chart check completed.
--- NOTE | 2019-09-03 23:06 | NUR ---
P-GRANDIOSE DELUSIONS I-1:1 VERBAL INTERVENTION FOR EMOTIONAL SUPPORT, PRESENT REALITY, ADMININSTER MEDS, MONITOR SLEEP R-PLEASANT & ELATED AT TIMES. ALERT & ORIENTED X 4. CONTINUES TO VOICE NUMEROUS GRANDIOSE DELUSIONS & DISPLAYS EXAGGERATED FACIAL EXPRESSIONS WHEN DISCUSSING DELUSIONS. UNRECEPTIVE TO REALITY. COMPLIANT TAKING MEDICATIONS WHOLE. LOOKED IN THE CUP & STATED, "4 DEPAKOTES. IT DOESN'T WORK. OH WELL". LIFTED EYEBROWS & SMILED MATTER OF FACTLY. CONTINENT OF URINE. ATE SNACK. INDEPENDENT WITH AMBULATION. P-CONTINUE TO MONITOR & PROVIDE EMOTIONAL SUPPORT. PRESENT REALITY.
--- NOTE | 2019-09-04 06:14 | NUR ---
PT SLEPT PAST 2200 WITH AN AWAKENING & WAS INCONTINENT OF A LARGE AMOUNT OF URINE.
[2019-09-04 08:10] VITALS: BP 153/89
--- NOTE | 2019-09-04 09:00 | NUR ---
TREATMENT PLAN MEETING WAS HELD WITH DR. VALADEZ, SRAVAN PALACIO, RN, AT, DIRECTOR HEALTH-S AND COOPERATIVE MANAGER. PLAN FOR DISCHARGE NEXT WEEK. PT. WILL RETURN TO THE [facility].
--- NOTE | 2019-09-04 11:41 | NUR ---
AM GROUP/EXERCISE AND [place] PT ATTENDED MORNING GROUP THERAPY AND PARTICIPATED IN ALL ACTIVITIES. PT WAS LESS HYPERVERBAL THAN PREVIOUSLY AND LESS GRANDIOUS. 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
--- NOTE | 2019-09-04 15:39 | NUR ---
PM GROUP/CRAFTS PT ATTENDED AFTERNOON GROUP THERAPY AND PARTICIPATED IN ALL ACTIVITIES. PT WAS LESS TALKATIVE AND ONLY EXPRESSED GRANDIOUS DELUSIONS A FEW TIMES. PT WAS ON TASK AND EXPRESSED NO AGITATION.
--- NOTE | 2019-09-04 16:37 | NUR ---
P: GRANDIOSE AND ISLAM DELUSIONS VOICED. STATING "I TOURED IN [employer] 5 TIMES, 2014 LOST PARENTS WHILE TOURING AROUND THE WORLD. HE STATED HE WAS IN "[facility] WHERE I WAS IN HELL AND GOD BROUGHT ME BACK A TRANSGENDER TO HELP OTHERS" AND STATED "I'M GOING TO GIVE YOU 7 TRILLION DOLLLARS FOR THE BANK" PATIENT STATES "I SEE ANGELS" I: ONE ON ONE AND REDIRECTION/ORIENTATION TO REALITY AND ENCOURAGED TO PARTICIPATE IN GROUP SESSION. R: INEFFECTIVE. PATIENT STATED "THEY CALL ME RUFUS OROURKE HER, BUT I'M VICTORINA LOPEZGLADYS'S DAUGHTER". PATIENT IS ALERT TO PERSON, PLACE, TIME AND SITUATION; ABLE TO VOICE NEEDS. MOOD IS EUTHYMIC. DENIES TO HI/SI OR PAIN. HALLUCINATES WITH GRANDIOSE AND ISLAM DELUSIONS. 1 PERSON VERBAL CUEING WITH ACTIVITIES OF DAILY LIVING, MIXED INCONTINENCE. BLADDER INCONTINENT X 2 TODAY. SET UP FOR MEALS, INTAKES ARE GOOD WITH ADEQUATE FLUIDS. AMBULATORY WITH STEADY GAIT. INTERACTIVE WITH STAFF AND OTHER PATIENTS. PARTICIPATES IN GROUP SESSION. NO AGGRESSION OBSERVED. P: CONTINUE TO MONITOR FOR AGGRESSION AND BEING COMBATIVE WITH OTHER PATIENTS. ONE ON ONE AND REDIRECTION/ORIENTATION NEEDED.
[2019-09-04 19:42] VITALS: BP 155/72
--- NOTE | 2019-09-04 19:57 | NUR ---
24 HR chart check completed.
--- NOTE | 2019-09-04 22:47 | NUR ---
P-GRANDIOSE DELUSIONS I-1:1 PRESENT REALITY, ADMININSTER MEDS, MONITOR SLEEP R-PLEASANT & ELATED AT TIMES. ALERT & ORIENTED X 4. CONTINUES TO VOICE NUMEROUS GRANDIOSE DELUSIONS. UNRECEPTIVE TO REALITY. COMPLIANT TAKING MEDS & CONTINUES TO STATE THAT THE DEPAKOTE IS NOT WORKING. PT CONTINENT OF URINE. ATE SNACK. INDEPENDENT WITH AMBULATION. P-CONTINUE TO MONITOR & PROVIDE EMOTIONAL SUPPORT. PRESENT REALITY.
--- NOTE | 2019-09-05 06:42 | NUR ---
PATIENT SLEPT 7 HOURS OF INTERRUPTED SLEEP THROUGHOUT SHIFT. Q 15 MINUTE CHECKS MAINTAINED. 24 HR chart check completed.
[2019-09-05 07:46] VITALS: BP 115/74; BP 144/75
--- NOTE | 2019-09-05 08:30 | NUR ---
TREATMENT PLAN MEETING WAS HELD WITH DR. VALADEZ, SRAVAN PALACIO, RN, AT, SOCK KNITTER-S AND OIL PUMPER. PLAN FOR DISCHARGE NEXT WEEK. PT. WILL RETURN TO THE [facility].
--- NOTE | 2019-09-05 11:39 | NUR ---
AM GROUP/MUSIC AND ART PT ATTENDED MORNING GROUP THERAPY AND PARTICIPATED IN ALL ACITIVITIES. PT IS LESS VERBAL BUT STILL EXPRESSES GRANDIOUS DELUSIONS THOUGH LESS PERSISTANT AND LESS ARGUMENTATIVE
--- NOTE | 2019-09-05 13:36 | NUR ---
CLINICAL UPDATES FAXED TO THE [facility] ATTN: HANG [phone].
--- NOTE | 2019-09-05 15:39 | NUR ---
PM GROUP/CRAFTS PT ATTENDED AFTERNOON GROUP THERAPY AND PARTICIPATED IN ALL ACTIVITIES. PT EXPRESSES GRANDIOUS DELUSIONS BASED ON WHATEVER THE CONVERSATION IS ABOUT. IF THE GROUP TALKS , PT IS FABRIZIO AND HIS MOTHER CAME OVER ON THE BOAT, ETC.
[2019-09-05 19:29] VITALS: BP 146/76
--- NOTE | 2019-09-05 19:47 | NUR ---
P: GRANDIOSE DELUSIONS I: ONE ON ONE FOR EMOTIONAL SUPPORT, ENCOURAGE MEDICATION COMPLIANCE SOCIAL INTERACTINS WITH STAFF AND OTHER PATIENTS. R: EFFECTIVE. PATIENT IS ALERT AND ORIENTED TO PERSON, PLACE, TIME AND SITUATION; ABLE TO VOICE NEEDS. MOOD IS IRRITABLE, INTRUSIVE AND WITHDRAWN. DENIES ANY HALLUCINATIONS, DELUSIONS, HI/SI OR PAIN. NO RESPONSE TO INTERNAL STIMULI. MEDICATION COMPLIANT WITH EDUCATION. Q 15 MINUTE SAFETY CHECKS MAINTAINED. ENCOURAGE INTERACTIONS WITH STAFF AND OTHER PATIENTS. P: CONTINUE TO MONITOR MOOD, MEDICATION COMPLAINCE, OUTBURST AND AUDITORY HALLUCINATIONS. PROVIDE ONE ON ONE, REDIRECTION/ORIENTATION NEEDED.
--- NOTE | 2019-09-05 21:39 | NUR ---
P- GRANDIOSE DELUSIONS I- 1:1 AND REDIRECTION, MED COMPLIANCE. R- PT IS ALERT AND ORIENTED X4, MOOD IS PLEASANT AND ELATED. CONTINUES WITH GRANDIOSE DELUSIONS, IS NOT RECEPTIVE TO REALITY ORIENTATION. WANTS TO BE ADRESSED "VICTORINA" NOT RUFUS. UPSET THAT ALL HIS INFO CALLS HIM RUFUS. IS HAPPY THAT DEPAKOTE HAS BEEN DISCONTINUED. P- MONITOR SLEEP AND PROVIDE EMOTIONAL SUPPORT. PRESENT REALITY ORIENTATION NEEDED.
--- NOTE | 2019-09-05 21:45 | NUR ---
24 HR chart check completed.
--- NOTE | 2019-09-06 05:14 | NUR ---
PATIENT SLEPT ABOUT 8 HOURS AND WAS CONTINENT ALL NIGHT.
[2019-09-06 07:36] VITALS: BP 150/78
--- NOTE | 2019-09-06 08:44 | NUR ---
PATIENT SITTING IN DINING ROOM, INTERACTING PLEASANTLY WITH PEERS. NO S/S OF DISTRESS NOTED. RESPS EVEN AND UNLABORED ON ROOM AIR. NO VOICED COMPLAINTS AT THIS TIME. Q15 MINUTE CHECKS MAINTAINED FOR SAFETY.
--- NOTE | 2019-09-06 09:00 | NUR ---
TREATMENT PLAN MEETING WAS HELD WITH DR. VALADEZ, RN, AT, PULPWOOD CUTTER-S AND PLANT PRODUCTION WORKER. PLAN FOR DISCHARGE TUESDAY WITH RETURN TO THE [facility].
--- NOTE | 2019-09-06 12:17 | NUR ---
Shift chart check completed.
--- NOTE | 2019-09-06 12:21 | NUR ---
P- EUTHYMIC; GRANDIOUS DELUSIONS I- 1:1 THERAPEUTIC INTERACTION WITH EMOTIONAL SUPPORT AND VENTILATION OF FEELS PROVIDED. PRESENT REALITY WITH DELUSIONS. ASSESS MOOD, ORIENTATION, SI/HI, HALLUCINATIONS, DELUSIONS OR PAIN. ENCOURAGE TO ATTEND GROUP THERAPIES FOR EMOTIONAL SUPPORT AND SOCIALIZATION. PROVIDE MEDICATIONS AND EDUCATION ON EACH. R- REALITY PRESENTATION EFFECTIVE WITH DELUSIONS. 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 PATIENT STATED BEING "RONY OF THE [employer]". 1:1 INTERACTION EFFECTIVE. MEDICATION COMPLIANT. EATING AND DRINKING ADEQUATELY. MOOD EUTHYMIC. ALERT AND ORIENTED X3. DENIES SI/HI, HALLUCINATIONS OR PAIN. INTERACTS AND PARTICIPATES IN GROUP THERAPIES. P- 1:1 THERAPEUTIC INTERACTION. PRESESNTATION REALITY WITH DELUSIONS. ASSESS MOOD, ORIENTATION, SI/HI, HALLUCINATIONS, DELUSIONS OR PAIN. PROVIDE MEDS ON TIME WITH EDUCATION ON EACH. Q15 MINUTE CHECKS MAINTAINED FOR SAFETY.
--- NOTE | 2019-09-06 15:08 | NUR ---
Pt was very pleasant this morning during interaction with this comic writer. Pt stated that he didn't want to come to [facility] but now he is glad that he did because he has met such nice people. 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 Pt then stated, "Rest assured. You will still have a job." Pt smiled throughout conversation.
--- NOTE | 2019-09-06 15:42 | NUR ---
PM GROUP PT WAS PRESENT FOR AFTERNOON GROUP THERAPY AND PARTICIPATED IN ALL ACTIVITIES. PT WAS TALKATIVE AND GRANDIOUS. PT EXPRESSED AGITATION AT HAVING OBJECTS/MAGAZINES REMOVED FROM HIM AND FOR "PEOPLE NOT DOING WHAT THEY SAY THEY WILL DO"
[2019-09-06 20:12] VITALS: BP 126/70
--- NOTE | 2019-09-07 03:23 | NUR ---
NO ADVERSE BEHAVIORS NOTED. PT ALERT AND ORIENTED X4, CALM, PLEASANT. PT INTERACTIVE, JOKING APPROPRIATELY WITH STAFF AND PEERS DURING HS MEDICATION PASS, EUPHORIC. PT MEDICATION COMPLIANT WITHOUT DIFFICULTY AFTER REVIEW. PT DENIES SI/HI, HALLUCINATIONS, OR PAIN. NO PARANOIA/DELUSIONS NOTED. PT AMBULATORY WITH A STEADY GAIT, INDEPENDENT IN ADL'S, CONTINENT/INCONTINENT OF BOWEL AND BLADDER. PT CURRENTLY LAYING DOWN WITH EYES CLOSED, RESPIRATIONS EASY AND REGULAR, NO SIGNS OR SYMPTOMS OF DISTRESS NOTED. PLAN IS TO CONTINUE TO MONITOR MOODS AND BEHAVIORS. PROVIDE 1:1 WITH THERAPEUTIC INTERVENTIONS. ENCOURAGE MEDICATION COMPLIANCE AND EDUCATE. MAINTAIN Q 15 MIN CHECKS AND PRN FOR SAFETY.
--- NOTE | 2019-09-07 04:01 | NUR ---
24 HOUR CHART CHECK COMPLETED.
--- NOTE | 2019-09-07 06:09 | NUR ---
PATIENT OBSERVED ON Q 15 MIN CHECKS TO HAVE SLEPT APPROX 8 HOURS WITH X1 BRIEF AWAKENING TO USE THE RESTROOM. INCONTINENT X1, CARE PROVIDED WITHOUT DIFFICULTY. NO SIGNS OR SYMPTOMS OF DISTRESS NOTED.
[2019-09-07 07:41] VITALS: BP 131/64
--- NOTE | 2019-09-07 09:00 | NUR ---
TREATMENT PLAN MEETING WAS HELD WITH SRAVAN PALACIO, RN, AT, TREE TRIMMING SUPERVISOR-S AND CLOTH PRINTER. PLAN FOR DISCHARGE TUESDAY WITH RETURN TO THE [facility].
[2019-09-07 09:01] LABS: BASO # 0.1 10*3/uL (0.0-0.1); BASO % 0.6 % (0.0-1.0); EOS # 0.6 10*3/uL (0.0-0.4); HEMATOCRIT 37.1 % (42.0-52.0); HEMOGLOBIN 11.9 g/dl (14.0-18.0); LYMPH # 1.4 10*3/uL (1.3-4.4); LYMPH % 14.1 % (27.0-41.0); MEAN CELL VOLUME 98.4 fl (80.0-94.0); MEAN CORPUSCULAR HGB 31.6 pg (27.0-31.0); MEAN CORPUSCULAR HGB CONC 32.1 g/dl (33.0-37.0); MEAN PLATELET VOLUME 9.1 fl (9.6-12.3); MONO # 0.7 10*3/uL (0.1-1.0); MONO % 7.3 % (3.0-9.0); NEUT # 7.2 10*3/uL (2.3-7.9); NEUT % 70.5 % (47.0-73.0); PLATELET COUNT AUTOMATED 267 10*3/uL (130-400); RED BLOOD COUNT 3.77 10*6/uL (4.50-5.90); RED CELL DISTRI WIDTH 13.7 % (0-14.5); WHITE BLOOD COUNT 10.2 10*3/uL (4.8-10.8)
--- NOTE | 2019-09-07 11:53 | NUR ---
AM GROUP PT ATTENDED MORNING GROUP THERAPY AND PARTICIPATED BY COLORING. PT WAS QUIET AND ON TASK. PT EXPRESSED NO GRANDIOSITY WHILE IN GROUP.
--- NOTE | 2019-09-07 15:05 | NUR ---
Patient was pleasant today while interacting with this editorial writer. Pt continues to be grandiose and delusional. However, pt demonstrated improvement in personal boudaries. Pt did not interrupt nor interject in a conversation that this editorial writer was having with another pt.
--- NOTE | 2019-09-07 15:36 | NUR ---
PM GROUP PT ATTENDED AND PARTICIPATED IN AFTERNOON GROUP THERAPY.PT WAS LESS TALKATIVE AND MORE FOCUSED ON HIS TASK.
--- NOTE | 2019-09-07 18:46 | NUR ---
P- PT CONTINUES WITH GRANDIOUS DELUSIONS. I- ORIENTATION, MOOD AND BEHAVIORS ASSESSED. ASSESSED PT FOR SI/HI, INTENT OR PLAN. ASSESSED PT FOR S/S HALLUCINATIONS, PARANOIA AND/OR DELUSIONS. MEDICATIONS ADMINSTERED PER PHYSICIAN'S ORDERS. ASSISTANCE WITH ADL CARE PROVIDED NEEDED. ENCOURAGED PT TO ATTEND AND PARTICIPATE IN [facility] GROUPS AND ACTIVITIES. R- PT IS ALERT AND ORIENTED X4. MEMORY INTACT. RESPS EASY AND EVEN ON ROOM AIR. MOOD EUTHYMIC, AFFECT BROAD RANGE. SPEECH IS WNL AND COHERENT, ABLE TO MAKE NEEDS KNOWN WITHOUT DIFFICULTY. PT REPORTS HE FEELS DEPRESSED BECAUSE HE HAS TO LEAVE HERE, STATES HE WANTS TO STAY HERE FOREVER. PT STATES HE IS NOT SLEEPING WELL BECAUSE HE IS "NOT ALLOWED TO SLEEP BECAUSE THE SAND IS HOT AND DROPS ARE COLD". PT CONTINUES TO VOICE VARIOUS GRANDIOSE DELUSIONS WITH PRESYBETERIAN OVERTONES, HOWEVER, PT IS PLEASANT AND MORE EASILY REDIRECTED. MED COMPLIANT WITHOUT DIFFICULTY. NO AGGRESSIVE BEHAVIORS. NO DISTRESS NOTED. P- PLAN TO CONTINUE CURRENT TREATMENT, CONTINUE TO MONITOR MOOD AND BEHAVIORS, PROVIDE APPROPRIATE REORIENTATION, REDIRECTION AND 1:1 NEEDED. CONTINUE TO ENCOURAGE MEDICATION COMPLIANCE WELL GROUP ATTENDANCE AND PARTICIPATION.
[2019-09-07 20:03] VITALS: BP 132/80
--- NOTE | 2019-09-08 02:15 | NUR ---
NO ADVERSE BEHAVIORS NOTED. PT ALERT AND ORIENTED X4, ISOLATIVE TO ROOM AND BED SINCE BEGINNING OF SHIFT. DURING 1:1 PATIENT PLEASANT, HYPERVERBAL, STATED "IM JUST TIRED, CAUGHT MYSELF SNORING, DIDNT KNOW I SNORE, IM DOING GOOD, JUST TIRED, I MIGHT BE AWAKE NOW, ILL PROBABLY BE ABLE TO GO BACK TO SLEEP, HOPEFULLY I DONT SNORE AGAIN, BUT IM FINE THANK YOU". PT MEDICATION COMPLIANT WITHOUT DIFFICULTY AFTER REVIEW. PT DENIES SI/HI, HALLUCINATIONS, OR PAIN. NO PARANOIA/DELUSIONS NOTED. PT AMBULATORY WITH A STEADY GAIT, INDEPENDENT IN ADL'S, CONTINENT/INCONTINENT OF BOWEL AND BLADDER. PT CURRENTLY LAYING DOWN WITH EYES CLOSED, RESPIRATIONS EASY AND REGULAR, NO SIGNS OR SYMPTOMS OF DISTRESS NOTED. PLAN IS TO CONTINUE TO MONITOR MOODS AND BEHAVIORS. PROVIDE 1:1 WITH THERAPEUTIC INTERVENTIONS. ENCOURAGE MEDICATION COMPLIANCE AND EDUCATE. MAINTAIN Q 15 MIN CHECKS AND PRN FOR SAFETY.
--- NOTE | 2019-09-08 06:05 | NUR ---
24 HOUR CHART CHECK COMPLETED.
--- NOTE | 2019-09-08 06:19 | NUR ---
PATIENT SLEPT APPROX 11 HOURS THIS SHIFT WITH BRIEF AWAKENINGS TO USE THE RESTROOM. NO DISTRESS NOTED.
[2019-09-08 08:00] VITALS: BP 135/68
--- NOTE | 2019-09-08 08:37 | NUR ---
Patient in dining room with peers with no c/o discomfort. Respirations easy and regular. Vital signs stable. No overt distress. NILAY GIL
--- NOTE | 2019-09-08 09:59 | NUR ---
PT GRANDIOSE DELUSIONAL. ASSESSED FOR ORIENTATION LEVEL, MOOD, AND AFFECT. PRESENTED WITH REALITY. MEDICATIONS ADMINISTERED PER ORDER. PT ALERT, ORIENTED X 4. MOOD IS STABLE, AFFECT IS CONGRUENT WITH MOOD. PT UNRECEPTIVE TO REALITY PRESENTATION. STATES THAT HE IS VICTORINA JOHN, STATES IS IS TO STAY AWAKE AT NIGHT TO TAKE CARE OF AN [facility]. 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 STATES HIS MOTHER SENT A SHIP TO [facility]. REQUESTING A VISA CREDIT CARD. PT DID GET A SHOWER THIS AM AND STATES HE FEELS GOOD. WILL CONTINUE TO PRESENT REALITY APPROPRIATE. WILL CONTINUE TO MONITOR PT'S MOOD AND BEHAVIORS. WILL CONTINUE TO MONITOR Q15 MIN PER POLICY.
--- NOTE | 2019-09-08 11:49 | NUR ---
AM GROUP/EXERCISE/LEISURE SKILLS PT IN ATTENDNACE AND PARTICIPATED IN ALL ACTIVITY. PT QUIET TO SELF WITH NO GRANDIOUS DELUSIONS OR HOARDING BEHAVIORS EXPRESSED AT THIS TIME. PT WILL CONTINUE TO ATTEND/PARTICIPATE IN FUTRUE GROUP SESSIONS.
--- NOTE | 2019-09-08 15:52 | NUR ---
PM GROUP/CRAFT/MUSIC PT IN ATTENDNACE AND PARTICIPATED IN ALL ACTIVITY. PT PLEASANT AND ON TASK WITH NO GRANDIIOUS DELUSIONS OR HOARDING BEHAVIORS AT THIS TIME. PT WILL CONTINUE TO ATTEND AN DPARTICIPATE IN FUTRUE GROUP SESSIONS.
[2019-09-08 20:01] VITALS: BP 130/65
--- NOTE | 2019-09-08 20:17 | NUR ---
24 HR chart check completed.
--- NOTE | 2019-09-08 22:52 | NUR ---
P-C/O BEING TIRED I-1:1, ADMININISTER MEDS, MONITOR SLEEP R-PT QUIET & KEPT TO HIMSELF WHILE SITTING IN THE DINING ROOM. STABLE MOOD. PLEASANT AFFECT. LIMITED VERBALLY & STATED THAT HE WAS TIRED. NO DELUSIONAL STATEMENTS. ALERT & ORIENTED X 4. COMPLIANT WITH SNACK & MEDS P-CONTINUE TO MONITOR. PROVIDE ASSISTANCE WHEN NEEDED.
--- NOTE | 2019-09-09 05:14 | NUR ---
PT SLEPT PAST 2144
[2019-09-09 08:00] VITALS: BP 131/85
--- NOTE | 2019-09-09 12:47 | NUR ---
NO ADVERSE MOODS OR BEHAVIORS NOTED. FALL PRECAUTIONS MAINTAINED. A&O X4. INTERACTIVE WITH STAFF AND PEERS. NO HALLUCINATIONS NOTED. DELUSIONAL THOUGHTS CONTINUE. MEDICATION COMPLIANT. DENIES SI/HI, SADNESS AND DEPRESSION. PT STATES HE IS SLEEPING AND EATING WELL. WILL CONTINUE TO MONITOR BEHAVIORS WITH Q15 MINUTE SAFETY CHECKS AND ENCOURAGE MEDICATION COMPLIANCE.
--- NOTE | 2019-09-09 14:33 | NUR ---
SKIN ASSESSMENT COMPLETED. NO NEW AREAS OF CONCERN NOTED.
--- NOTE | 2019-09-09 19:37 | NUR ---
24 HR chart check completed.
[2019-09-09 20:00] VITALS: BP 134/66
--- NOTE | 2019-09-09 20:55 | NUR ---
MOOD IS PLEASANT. HAS SAT IN THE DINING ROOM QUIETLY AMONG PEERS. ALERT & ORIENTED X 4. SPEECH IS NORMAL. NO DELUSIONAL STATEMENTS VOICED. ATE SNACK. COMPLIANT WITH MEDS. DENIES ANY PHYSICAL DISCOMFORT OR ISSUES. AMBULATES INDEPENDENTLY.
--- NOTE | 2019-09-10 05:47 | NUR ---
PT HAS SLEPT PAST 2200 WITH 1 BRIEF AWAKENING TO GO TO THE BATHROOM
[2019-09-10 07:45] VITALS: BP 137/85
--- NOTE | 2019-09-10 08:30 | NUR ---
TREATMENT PLAN MEETING WAS HELD WITH DR. VALADEZ, SRAVAN PALACIO, RN, AT, EXECUTIVE RECEPTIONIST-S AND VETERINARY VIROLOGIST. PLAN FOR DISCHARGE TUESDAY WITH RETURN TO THE [facility].
--- NOTE | 2019-09-10 11:34 | NUR ---
AM GROUP PT ATTENDED MORNING GROUP THERAPY AND PARTICIPATED IN ALL ACTIVITIES. PT WAS VERY QUIET AND EXPRESSED NO GRADIOUS DELUSIONS.
--- NOTE | 2019-09-10 11:56 | NUR ---
SPOKE WITH HANG AGUILAR AT [facility]. ADVISED OF PLANS TO DISCHARGE TUESDAY. CLINICAL UPDATES FAXED TO FACILITY ATTN: HANG [phone].
--- NOTE | 2019-09-10 13:29 | NUR ---
PT PLEASANT, COOPERATIVE WITH ASSESSMENT. MEDICATION COMPLIANT WITHOUT DIFFICULTY. NO HALLUCINATIONS PRESENT. PT REMAINS DELUSIONAL AT TIMES; HOWEVER, IS NO LONGER HYPERVERBAL. PT DENIES SADNESS OR DEPRESSED MOOD. CONTINENT OF BOWEL AND BLADDER. APPETITE POOR, SLEEP QUALITY GOOD. PT STATES HE IS "FEELING GOOD". WILL CONTINUE TO MONITOR Q15 MIN PER POLICY FOR SAFETY
--- NOTE | 2019-09-10 15:00 | NUR ---
PT PLEASANT, COOPERATIVE WITH ASSESSMENT. MEDICATION COMPLIANT WITHOUT DIFFICULTY. NO HALLUCINATIONS PRESENT. PT REMAINS DELUSIONAL AT TIMES; HOWEVER, IS NO LONGER HYPERVERBAL. PT DENIES SADNESS OR DEPRESSED MOOD. CONTINENT OF BOWEL AND BLADDER. APPETITE GOOD, SLEEP QUALITY GOOD. PT STATES HE IS "FEELING GOOD". WILL CONTINUE TO MONITOR Q15 MIN PER POLICY FOR SAFETY
--- NOTE | 2019-09-10 15:37 | NUR ---
PM GROUP PT ATTENDED AFTERNOON GROUP THERAPY AND PARTICIPATED IN ALL ACTIVITIES. PT WAS QUIET AND ON TASK. PT EXPRESSED NO GRANDIOUS DELUSIONS WHILE IN GROUP
[2019-09-10 19:52] VITALS: BP 148/72
--- NOTE | 2019-09-11 00:26 | NUR ---
NO ADVERSE BEHAVIORS NOTED. PT ALERT AND ORIENTED X4, CALM, PLEASANT. PT INTERACTIVE, JOKING APPROPRIATELY WITH STAFF AND PEERS DURING HS MEDICATION PASS, EUTHYMIC. PT MEDICATION COMPLIANT WITHOUT DIFFICULTY AFTER REVIEW. PT DENIES SI/HI, HALLUCINATIONS, OR PAIN. NO PARANOIA/DELUSIONS NOTED. PT AMBULATORY WITH A STEADY GAIT, INDEPENDENT IN ADL'S, CONTINENT/INCONTINENT OF BOWEL AND BLADDER. PT CURRENTLY LAYING DOWN WITH EYES CLOSED, RESPIRATIONS EASY AND REGULAR, NO SIGNS OR SYMPTOMS OF DISTRESS NOTED. PLAN IS TO CONTINUE TO MONITOR MOODS AND BEHAVIORS. PROVIDE 1:1 WITH THERAPEUTIC INTERVENTIONS. ENCOURAGE MEDICATION COMPLIANCE AND EDUCATE. MAINTAIN Q 15 MIN CHECKS AND PRN FOR SAFETY.
--- NOTE | 2019-09-11 05:23 | NUR ---
24 HOUR CHART CHECK COMPLETED.
--- NOTE | 2019-09-11 05:46 | NUR ---
PATIENT SLEPT APPROX 8 HOURS UNINTERRUPTED.
[2019-09-11 08:00] VITALS: BP 144/64
--- NOTE | 2019-09-11 08:30 | NUR ---
TREATMENT PLAN MEETING WAS HELD WITH DR. VALADEZ, SRAVAN PALACIO, RN, AT, BANQUET COOK-S AND GLAZIER ARTIST. PLAN FOR DISCHARGE TUESDAY WITH [facility]URN TO [facility].
--- NOTE | 2019-09-11 11:38 | NUR ---
AM GROUP PT ATTENDED MORNING GROUP THERAPY AND PARTICIPATED IN ALL ACTIVITIES. PT WAS SOCIALABLE WITH A FEMALE PEER BUT DID NOT EXPRESS ANY GRANDIOUS DELUSIONS WHILE IN GROUP. FOR THE MOST PART, PT HAS BEEN QUIET AND ON TASK.
--- NOTE | 2019-09-11 12:37 | NUR ---
PT PLEASANT, COOPERATIVE WITH ASSESSMENT. MEDICATION COMPLIANT WITHOUT DIFFICULTY. NO HALLUCINATIONS PRESENT. PT REMAINS DELUSIONAL AT TIMES; HOWEVER, IS NO LONGER HYPERVERBAL. PT DENIES SADNESS OR DEPRESSED MOOD. CONTINENT OF BOWEL AND BLADDER. APPETITE GOOD, SLEEP QUALITY GOOD. PT STATES HE "FEELS GREAT" AND IS EXCITED TO LEAVE TOMORROW. WILL CONTINUE TO MONITOR Q15 MIN PER POLICY FOR SAFETY
[2019-09-11 19:53] VITALS: BP 142/85
--- NOTE | 2019-09-11 20:42 | NUR ---
EVENING/GAME/CRAFT PT ATTENDED AND PARTICIPATED BY PLAYING INDIO WITH THIS STAFF. PT EXPRESSES NO GRANDIOUS DELUSIONS OR HOARDING BEHAVIORS AT THIS TIME. PT WILL CONTINUE TO ATTEND/PARTICIPATE IN FUTURE GROUP SESSIONS.
--- NOTE | 2019-09-12 02:01 | NUR ---
P-CONFUSION I-REDIRECTION WITH 1:1 THERAPEUTIC INTERVENTIONS AND PRESENT REALITY. EDUCATE AND ENCOURAGE GROUP THERAPY WHILE AWAKE R-PATIENT MEDICATION COMPLIANT AT HS. PATIENT PROVIDED NOURISHMENT AND FLUIDS AT HS. PATIENT WITH NO SUICIDAL OR HOMICIDAL IDEATIONS. PATIENT WITH NO HALLUCINATIONS OR VERBALIZING ANY DELUSIONS AT THIS TIME. P-CONTINUE TO ENCOURAGE MEDICATION COMPLIANCE, CONTINUE TO PRESENT REALITY, ENCOURAGE GROUP THERAPY WHILE AWAKE
--- NOTE | 2019-09-12 05:34 | NUR ---
PATIENT SLEPT 8 HOURS OF UNINTERRUPTED SLEEP THROUGHOUT SHIFT. Q 15 MINUTE CHECKS MAINTAINED. 24 HR chart check completed.
[2019-09-12 07:30] VITALS: BP 159/86
--- NOTE | 2019-09-12 08:30 | NUR ---
TREATMENT PLAN MEETING WAS HELD WITH DR. VALADEZ, SRAVAN PALACIO, RN, AT, AERONAUTICAL ENGINEERING TEACHER-S AND NUMERICAL CONTROL MACHINE OPERATOR. PLAN FOR DISCHARGE TODAY WITH RETURN TO THE [facility]. TRANSPORTATION HAS BEEN ARRANGED WITH [facility] TO TRANSPORT WITH CLINICAL STAFF RN TIME 1:00 P.M.
[2019-09-12] MEDS ORDERED: CLOZAPINE100 MG PO ×2 (09:49→09:55)
[2019-09-12] MEDS ORDERED: BENZTROPINE MESY1 MG PO (09:49)
[2019-09-12] MEDS ORDERED: VITAMIN D350 MC2 PO (09:49)
[2019-09-12] MEDS ORDERED: INVEGA SUSTENN234 MG IM (09:55)
--- NOTE | 2019-09-12 10:00 | NUR ---
SPOKE WITH WILTON AVILA NP RE: PT DISCHARGE FOR TODAY AND MEDICAL MEDS NEEDING COMPLETED. NO FURTHER ORDERS AT THIS TIME.
--- NOTE | 2019-09-12 10:39 | NUR ---
NO ADVERSE MOODS OR BEHAVIORS NOTED AT THIS TIME. PT ALERT TO PERSON, PLACE, TIME AND SITUATION. PT MED COMPLIANT WITHOUT DIFFICULTY, MED EDUCATION PROVIDED. PT CALM, MOOD IS STABLE. NO HALLUCINATIONS OR DELUSIONS NOTED. PT DENIES ANY SUICIDAL THOUGHTS. PT PLEASANT AND COOPERATIVE, ANSWERS ASSESSMENTS QUESTIONS APPROPRIATELY. PT AMBULATORY THROUGHOUT UNIT, GAIT STEADY. PT CONTINENT OF BOWEL AND BLADDER, EPISODES OF INCONTINENCE NOTED, CARE PROVIDED NEEDED. PLAN IS TO MONITOR PT BEHAVIORS ON Q15 MIN SAFETY CHECKS, ENCOURAGE MED COMPLIANCE AND PREPARE PT FOR DISCHARGE TO [facility] THIS AFTERNOON.
--- NOTE | 2019-09-12 10:48 | NUR ---
Met with pt this AM. Pt was pleasant and appropriate in conversation. Pt was not hyperverbal and did not voice any grandiose delusions. Observed pt being friendly and supportive of a peer.
--- NOTE | 2019-09-12 10:50 | NUR ---
Patient is discharging today returning to [facility]. Follow-up will be with Dr Peters, visiting psychiatrist. While at [facility], pt's behaviors improved and pt's voicing of grandiose delusions resolved. Pt was pleasant and cooperative. He did paticipate in programming and interacted with staff and his peers.
--- NOTE | 2019-09-12 11:43 | NUR ---
AM GROUP PT ATTENDED MORNING GROUP THERAPY AND PARTICIPATED IN ALL ACTIVITIES. PT WAS QUIET AND ON TASK. PT EXPRESSED NO GRADIOUS DELUSIONS WHILE IN GROUP. PT IS SET TO BE DISCHARGED FROM THE UNIT THIS AFTERNOON.
--- NOTE | 2019-09-12 13:31 | NUR ---
DISCHARGE PAPERWORK FAXED TO [facility] ATTN: HANG AGUILAR.
--- NOTE | 2019-09-12 13:48 | NUR ---
SPOKE WITH PATIENT LEGAL GUARDIAN CONCERNING DISCHARGE. FAXED COPY OF DISCHARGE PAPERWORK TO LEGAL GUARDIAN CHAPARRITA COULTER [phone].
--- NOTE | 2019-09-12 14:46 | NUR ---
PT DISCHARGED TO [facility]IA [facility]. PT DC PAPERWORK AND PT BELONGINGS SENT WITH PT.
== END 2019-09-12 14:44 | disposition home health service (06) | DRG 42 ==
LOC: 3N 00:17
PROVIDERS: Counselor Professional; Physician Assistant; ADMIT Psychiatry & Neurology Psychiatry
DX: G20 Parkinson's disease (principal); F25.0 Schizoaffective disorder, bipolar type; F63.81 Intermittent explosive disorder; N40.0 Benign prostatic hyperplasia without lower urinary tract symptoms; F41.9 Anxiety disorder, unspecified; I10 Essential (primary) hypertension; E78.00 Pure hypercholesterolemia, unspecified; K42.9 Umbilical hernia without obstruction or gangrene; F43.10 Post-traumatic stress disorder, unspecified; X58.XXXA Exposure to other specified factors, initial encounter; Z88.8 Allergy status to other drugs, medicaments and biological substances; Y93.89 Activity, other specified; Y92.89 Other specified places as the place of occurrence of the external cause; Y99.8 Other external cause status